=== PATIENT | male | born 2000 | race Caucasian/White ===

== ENCOUNTER 2024-02-15 10:23 | Emergency (ER) | payer OTHER, SELFPAY ==
[2024-02-15 10:49] VITALS: BP 129/76
--- NOTE | 2024-02-15 11:12 | ED.GENMED ---
History of Present Illness
General
Chief Complaint: Cold/Flu/URI Symptoms
Time Seen by Provider: 02/15/24 11:12
Travel History
Have you had any contact with someone who has COVID-19?: No
Do you have any symptoms of coronavirus? Fever > 100 degrees, chills, cough, shortness of breath, sore throat, loss of taste or smell, muscle aches, or headache?: Yes
Symptoms:: cough
History of Present Illness
History of Present Illness:
HPI: The patient presents with flulike symptoms since last night�she describes generalized myalgias, minimal cough, no fevers. Today he felt so weak he could barely stand and had trouble taking p.o.
EXAM:
GENERAL: Well appearing in no distress, he does not appear weak.
HEENT: Moist oral mucosa
NECK: No meningeal signs
CARDIOVASCULAR: No murmurs, normal heart rate, regular rhythm, No chest wall tenderness
PULMONARY: No respiratory distress, breath sounds are clear and equal
ABDOMEN: Soft with no peritoneal signs, no tenderness
NEUROLOGIC: Excellent strength all extremities, no coordination deficits
PSYCHIATRIC: Appropriate mental status, normal insight and judgement
EXTREMITIES: Nontender, no edema, moves all extremities equally
SKIN: No rash, no lesions
TIME OF INITIAL ENCOUNTER: 11:20 AM
NUMBER AND COMPLEXITY OF PROBLEMS ADDRESSED AT THE ENCOUNTER
� Chronic conditions affecting care: Has had concussion
� Acute Exacerbation and/or Progression of Chronic Illness: This is an acute problem
� Differential Diagnosis includes: Viral syndrome, vital signs not consistent with sepsis
AMOUNT AND/OR COMPLEXITY OF DATA TO BE REVIEWED AND ANALYZED
� I performed an independent evaluation of and my interpretation is:
EKG:
CT:
X-rays:
Laboratory Studies: COVID and flu testing are both negative
Other:
� Review of other/old records: The patient had a relatively unremarkable urinalysis in 2020
� Clinical information was obtained by an independent historian: I spoke to family member at bedside
� Prescriptions/Medications Considered but not given:
� Further testing considered but not performed: I offered and considered IV fluids and labs�the patient strongly prefers against any IV access.
RISK OF COMPLICATIONS AND/OR MORBIDITY OR MORTALITY OF PATIENT MANAGEMENT
� Social determinants of health affecting care: Lives at home
� Discussion with other providers:
� Escalation of care including admission/observation vs risk of discharge considered: The patient's vital signs are not consistent with sepsis. He is afebrile with normal heart rate. He has appropriate mental status. Suspect
more of a viral syndrome. He declined further workup. Prior to discharge I was informed by staff that the mother called indicated they wanted to talk to crisis. Ultimately the the patient did not want any further evaluation and he appears to be
able to make his own decision. He has appropriate mental status.
Past History
Past History
ED Past Medical History: None
ED Past Surgical History: None
Social History
Tobacco: Non-smoker
Personal: Single
Living: with family
Phy Exam
Physical Exam
Physical Exam:
See HPI
Course
Orders/Labs/Results
Orders:
Orders
02/15/24 11:23
COVID-19 Antigen Urgent
Source: Nasal Swab
Influenza A+B Rapid Molecular Urgent
RASHEEDA Source: Nasal Swab
Specimen Description:
02/15/24 12:31
Crisis Consult Urgent
Reason for Consult: mental health eval
Vital Signs
Initial and Last Documented VS:
Initial Vital Signs
Temp Pulse Resp BP Pulse Ox
97.8 F 59 16 129/76 100
02/15/24 10:49 02/15/24 10:49 02/15/24 10:49 02/15/24 10:49 02/15/24 10:49
Last Documented Vital Signs
Temp Pulse Resp BP Pulse Ox
97.8 F 62 20 129/75 99
02/15/24 10:49 02/15/24 13:09 02/15/24 13:09 02/15/24 13:09 02/15/24 13:09
*Critical Care Note
Total Time (30-74mins, 75-104mins- exclusive of procedures): Not Applicable
ED Attending Note
-
Portions of this chart may have been created with voice recognition software.� Occasional wrong word or��sound alike� substitutions may have occurred due to the inherent limitations of voice recognition software.
Discharge Plan
Departure
Patient Disposition: Home (Routine Discharge)
Date of Disposition: 02/15/24
Time of Disposition: 12:30
Patient with high blood pressure during this ER visit?: Yes
Discharge Problem:
Acute viral syndrome
Instructions: Viral Syndrome (DC)
Prescriptions:
No Action
No Current Medications
0
Referrals:
UNKNOWN - PT DOES,NOT KNOW [Family Provider] -
Activity Restrictions/Additional Instructions:
COVID and flu test were both negative. Vital signs are unremarkable with exception of slightly high blood pressure. You do not have a temperature elevation here. Your oxygen levels are excellent. Return here if worse. I suspect more of a viral
syndrome. There is no indication for antibiotics at this time.
Interventions
Interventions:
*Risk Screen - Suicide Last Done: 02/15/24 12:00
*General Assessment Last Done: 02/15/24 12:00
*Neglect/Abuse Screening Last Done: 02/15/24 12:00
*ED COVID-19 Vaccine History Last Done: 02/15/24 10:49
*Nursing Disposition Last Done: 02/15/24 13:09
ED- Pulmonary Assessment Last Done: 02/15/24 12:00
Discharge Date and Time
Discharge Date/Time: 02/15/24 13:10
Print Language: TUVAL[place]
[2024-02-15 11:49] LABS: COVID-19 Antigen Negative (Negative)
[2024-02-15 13:09] VITALS: BP 129/75
== END 2024-02-15 13:10 | disposition home or self-care (01) ==
LOC: EMR 10:23
PROVIDERS: EMERGENCY PHYSICIAN Emergency Medicine
DX: B34.9 Viral infection, unspecified (principal); R53.1 Weakness; Z11.52 Encounter for screening for COVID-19; R03.0 Elevated blood-pressure reading, without diagnosis of hypertension
CPT/HCPCS: 99283; 87502; 87811